=== PATIENT | female | born 1985 | race Two or more races ===

== ENCOUNTER 2020-10-25 18:24 | Emergency (ER) | payer SELFPAY ==
--- NOTE | ~2020-10-25 | CT_ITS ---
EXAMINATION: CT abdomen pelvis w con DATE: 10/25/2020 22:47 INDICATION: Right lower quadrant abdominal pain TECHNIQUE: Computed tomography (CT) of the abdomen and pelvis was performed with 100 cc Omnipaque 350 intravenous contrast. Automated exposure control and iterative reconstruction technique were employe d. Exam dose: 406.15 mGy-cm total exam DLP. COMPARISON: None. FINDINGS: Minimal dependent bilateral lower lobe atelectasis. Normal heart size. No pericardial or pl eural effusion. The gallbladder is distended with thickening of the wall. Consider acute cholecystitis. Gallbladder u ltrasound and possibly radionuclide hepatic there is scan may be of benefit for further evaluation as clinically appropriate. No hepatic space-occupying mass lesion. No bile duct or pancreatic duct dilatation. No pancreatic mas s lesion or calcification. Normal splenic size. Normal adrenal glands. No suspicious renal mass lesion or any urinary tract calculus or hydroureteronephrosis is evident. Th e urinary bladder is unremarkable. Normal caliber of the abdominal aorta. No intraperitoneal or retroperitoneal or pelvic mass lesion or adenopathy or ascites. There is prominent enhancement of the uterus and adnexal regions and prominent gonadal veins bilatera lly. The uterus and adnexal areas are otherwise unremarkable. No bowel obstruction, bowel wall thickening, pneumatosis or intraperitoneal free air. Moderate degenerative disc disease at L5-S1. Included skeletal structures are otherwise unremarkable. IMPRESSION: Distended gallbladder, gallbladder wall thickening; consider acute cholecystitis Reviewed, dictated and finalized at [facility] Reviewed, dictated and finalized at [facility].
[2020-10-25 18:54] VITALS: BP 130/75; PULSE 83; RESP 20; TEMP 36.1; O2SAT 100
[2020-10-25 19:08] LABS: Basophils Percent Auto 0.2 % (0.2-1.2); Eosinophils Absolute Auto 0.2 K/mm3 (0-0.3); Eosinophils Percent Auto 2.2 % (0-4.4); Hematocrit 37.4 % (37.0-47.0); Hemoglobin 12.8 g/dL (12.0-15.0); Immature Granulocyte Absolute 0.03 K/mm3 (0.00-0.031); Immature Granulocyte Percent A 0.3 % (0-0.5); Lymphocytes Percent Auto 34.7 % (18.3-44.2); Mean Corpuscular HGB Conc 34.2 g/dl (32-36); Mean Corpuscular Hemoglobin 30.5 pg (26-34); Mean Corpuscular Volume 89.3 fl (80-100); Monocytes Absolute Auto 0.7 K/mm3 (0.1-0.6); Monocytes Percent Auto 8.3 % (2.6-8.5); Neutrophils Absolute Auto 4.9 K/mm3 (1.3-6.7); Neutrophils Percent Auto 54.3 % (45.5-73.1); Platelet Count Result 252 k/mm3 (150-375); Red Blood Count 4.19 M/mm3 (4.2-5.4); Red Cell Distribution Width 12.3 % (11.5-14.5); White Blood Count 8.9 K/mm3 (4.5-10.0)
[2020-10-25 19:20] LABS: Add Urine Microscopic? YES; Appearance Urine Clear (Clear); Bacteria Urine Trace /hpf; Bilirubin Urine Negative (Negative); Blood Urine Negative (Negative); Color Urine Yellow (Yellow); Glucose Urine UA Negative (Negative); Ketones Urine Negative (Negative); Leukocyte Esterase Ur 2+ LEU/UL (Negative); Mucus Urine Rare /lpf; Nitrate Urine Negative (Negative); Protein Urine 1+ mg/dL (Negative); Specific Grav Ur 1.019 (1.001-1.035); Squamous Epithelial Cell Urine Rare /hpf (Few); Urobilinogen Urine Negative mg/dL (<2.0); WBC Urine 21-30 /hpf
[2020-10-25 19:20] LABS: Alanine Aminotransferase 21 U/L (4-35); Albumin Level 4.5 g/dL (3.5-5.1); Alkaline Phosphatase 70 U/L (38-126); Anion Gap 10 mmol/L (8-16); Aspartate Amino Transferase 30 U/L (14-36); Bilirubin,Total 0.4 mg/dL (0.2-1.3); Blood Urea Nitrogen 7 mg/dL (7-17); Calcium 9.4 mg/dL (8.4-10.2); Carbon Dioxide 28 mmol/L (22-30); Chloride 106 mmol/L (98-107); Estimated CRCL calculation 80 ml/min; Estimated Glomerular Filt Rate > 60; Glucose 105 mg/dL (65-105); Lipase 87 U/L (23-300); Potassium 3.8 mmol/L (3.4-5.0); Sodium 144 mmol/L (137-145)
[2020-10-25 21:02] VITALS: BP 114/74; PULSE 82; RESP 17; O2SAT 100
[2020-10-25] MEDS: KETOROLAC 30 MG/ML VIAL (*BKC) IV PUSH (22:05)
[2020-10-25] MEDS: SODIUM CHLORIDE 0.9% IV 1,000 ML 999 ML IV CONT (22:05)
[2020-10-25] MEDS: ONDANSETRON INJ 4 MG/2 ML VIAL IV PUSH (22:14)
--- NOTE | 2020-10-25 22:44 | ED.GENADULT ---
HPI - General Adult General Chief complaint: Abdominal Pain Stated complaint: rlq pain Time Seen by Provider: 10/25/20 21:44 History of Present Illness HPI narrative: Patient 35-year-old female presents emerged part with chief complaint of right-sided abdominal pain. Patient reports that for the last several days she has had discomfort throughout her abdomen worse in the right lower quadrant and right upper quadrant. Patient states that she has had no fever no chills or diarrhea. Patient reports that her last period was approximately a month ago. Patient reports that this is been going on for 3 days reports that she has had vomiting Related Data Home Medications Medication Instructions Recorded Confirmed calcium carbonate-vitamin D3 1 tablet PO BID 10/25/20 Allergies Allergy/AdvReac Type Severity Reaction Status Date / Time No Known Allergies Allergy Verified 10/25/20 22:12 Review of Systems Review of Systems: Narrative: A 10 system review of systems was completed on the patient and is negative except for what is stated in the HPI. Nursing and ancillary documentation was reviewed. Exam Narrative: Exam Narrative: GENERAL: Well-appearing, well-nourished, and in no acute distress. HEAD: Normocephalic, atraumatic. EYES: PERRLA and EOMI. ENT: Nares clear, no rhinorrhea or epistaxis. Mucous membranes moist. NECK: Supple. CHEST: Clear to auscultation. No respiratory distress. HEART: Regular rate and rhythm. No murmur heard. Normal peripheral pulses. ABDOMEN: Soft, diffuse tenderness palpation, nondistended, normal active bowel sounds. EXTREMITIES: Normal range of motion. No edema. SKIN: Warm, dry, no rash. NEURO: No focal deficits. Alert and oriented x3. PSYCH: Normal mood and affect. Course Course Emergency Course: Patient CT scan showed evidence of some gallbladder thickening concerning for possible acute cholecystitis. The patient is feeling much better at this time the case was discussed with With care of the surgical service patient started on oral antibiotic she also does have a urinary infection so the antibiotic coverage will provide dual coverage. The patient will be able to be discharged home with outpatient follow-up and low-fat diet Vital Signs Vital signs: Vital Signs Temperature 36.1 C L 10/25/20 18:54 Pulse Rate 83 10/25/20 18:54 Respiratory Rate 20 10/25/20 18:54 Blood Pressure 130/75 10/25/20 18:54 Pulse Oximetry 100 10/25/20 18:54 Temperature 36.1 C L 10/25/20 18:54 Pulse Rate 82 10/25/20 21:02 Respiratory Rate 17 10/25/20 21:02 Blood Pressure 114/74 10/25/20 21:02 Pulse Oximetry 100 10/25/20 21:02 Medical Decision Making Vital Signs Vital Signs: Vital Signs Temperature 36.1 C L 10/25/20 18:54 Pulse Rate 83 10/25/20 18:54 Respiratory Rate 20 10/25/20 18:54 Blood Pressure 130/75 10/25/20 18:54 Pulse Oximetry 100 10/25/20 18:54 Temperature 36.1 C L 10/25/20 18:54 Pulse Rate 82 10/25/20 21:02 Respiratory Rate 17 10/25/20 21:02 Blood Pressure 114/74 10/25/20 21:02 Pulse Oximetry 100 10/25/20 21:02 Lab Data Result diagrams: 10/25/20 19:00 10/25/20 19:00 Labs: Lab Results 10/25/20 10/25/20 10/25/20 Range/Units 19:00 19:00 19:06 WBC 8.9 (4.5-10.0) K/mm3 RBC 4.19 L (4.2-5.4) M/mm3 Hgb 12.8 (12.0-15.0) g/dL Hct 37.4 (37.0-47.0) % MCV 89.3 (80-100) fl MCH 30.5 (26-34) pg MCHC 34.2 (32-36) g/dl RDW 12.3 (11.5-14.5) % Plt Count 252 (150-375) k/mm3 MPV 10.0 (7.4-10.4) fl Immature Gran % (Auto) 0.3 (0-0.5) % Neut % (Auto) 54.3 (45.5-73.1) % Lymph % (Auto) 34.7 (18.3-44.2) % [place] % (Auto) 8.3 (2.6-8.5) % Eos % (Auto) 2.2 (0-4.4) % Baso % (Auto) 0.2 (0.2-1.2) % Lymph # (Auto) 3.10 (0.9-3.2) K/mm3 [place] # (Auto) 0.7 H (0.1-0.6) K/mm3 Eos # (Auto) 0.2 (0-0.3) K/mm3 Baso # (Auto) 0.0
[2020-10-25] MEDS: HYDROmorphone HCL INJ (*CRX) 1 MG/ML SYR IV PUSH (23:45)
== END 2020-10-26 00:05 | disposition home or self-care (01) ==
PROVIDERS: Emergency Medicine; Emergency Provider Emergency Medicine; PCP Physician Assistant
DX: K81.0 Acute cholecystitis (principal); N30.00 Acute cystitis without hematuria; R10.84 Generalized abdominal pain
CPT/HCPCS: 36415; 74177; 80053; 81001; 81025; 83690; 85025; 87086; 87088; 96361; 96374; 96375; 99284; J1170; J1885; J2405; J7030; Q9967

== ENCOUNTER 2022-05-05 10:25 | Outpatient (CLI) | payer OTHER, SELFPAY ==
--- NOTE | ~2022-05-05 | US_ITS ---
Pelvic ultrasound. Clinical History: Routine care, assess position and VIVI Technique: Limited real-time transabdominal scanning of the pelvis was performed. Findings: Gravid uterus is present, anteverted. Placenta located towards the fundus and posteriorly. heart rate is 136 bpm. VIVI is 18.75. Cephalic lie noted. Neither ovary visualized. There is no evidence of free fluid in the cul de sac. Impression: VIVI is 18.75. heart rate 136 bpm. Reviewed, dictated and finalized at [facility]. [employer] CARE ANALYST Impression: VIVI is 18.75. heart rate 136 bpm.
== END 2022-05-05 10:26 | disposition home or self-care (01) ==
PROVIDERS: PCP Physician Assistant; Visit Provider Family Medicine
DX: Z34.93 Encounter for supervision of normal pregnancy, unspecified, third trimester (principal)
CPT/HCPCS: 76815